=== PATIENT | female | born 1980 | race African-American/Black ===

== ENCOUNTER 2018-01-11 11:24 | Emergency (ER) | payer OTHER ==
[2018-01-11] MEDS: KETOROLAC 30 MG INJ IM (13:33)
== END 2018-01-11 13:35 | disposition home or self-care (01) ==
LOC: FTE 13:35
DX: B34.9 Viral infection, unspecified (principal); M79.1 Myalgia; J20.9 Acute bronchitis, unspecified; Z87.891 Personal history of nicotine dependence
CPT/HCPCS: 96372; 99284-25

== ENCOUNTER 2018-01-11 20:51 | Emergency (ER) | payer OTHER ==
[2018-01-11] MEDS: HYDROCODONE/APAP (5/325) TAB PO (21:59)
[2018-01-11 23:29] LABS: URINE PH (Dip) POC 6.5 (5.0-8.5)
[2018-01-11 23:29] LABS: URINE BLOOD (Dip) POC Negative (NEGATIVE); URINE GLUCOSE (Dip) POC Negative (NEGATIVE); URINE KETONES (Dip) POC 2+ (NEGATIVE); URINE LEUKOCYTE EST (Dip) POC Trace (NEGATIVE); URINE NITRITE (Dip) POC Negative (NEGATIVE); URINE TOTAL PROTEIN POC Trace (NEGATIVE)
[2018-01-11 23:47] LABS: HEMATOCRIT 36.6 % (37.0-47.0); HEMOGLOBIN 12.7 g/dl (12.0-16.0); MEAN CORPUSCULAR HEMOGLOBIN 30.8 pg (29.0-33.0); MEAN CORPUSCULAR HGB CONC 34.7 g/dl (32.0-37.0); MEAN CORPUSCULAR VOLUME 88.8 fl (82.0-101.0); MEAN PLATELET VOLUME 10.4 fl (7.4-10.4); PLATELET COUNT 201 10^3/UL (140-415); RED BLOOD COUNT 4.12 10^6/ul (4.20-5.40); RED CELL DISTRIBUTION WIDTH 13.2 % (11.5-14.5)
[2018-01-11 23:47] LABS: WHITE BLOOD COUNT 7.4 10^3/ul (4.8-10.8)
[2018-01-12] LABS: ADD MAN DIFF? YES
[2018-01-12 00:06] LABS: ANION GAP 15 (8-16); BLOOD UREA NITROGEN 14 mg/dl (7-20); CALCIUM 9.3 mg/dl (8.4-10.2); CARBON DIOXIDE 23 mmol/L (21-31); CHLORIDE 110 mmol/L (97-110); CREATININE 0.88 mg/dl (0.44-1.00); GLUCOSE 115 mg/dl (70-220); POTASSIUM 3.3 mmol/L (3.5-5.1); SODIUM 145 mmol/L (135-144)
[2018-01-12 00:10] LABS: ETHANOL < 10.0 mg/dl
[2018-01-12 00:54] LABS: AMPHETAMINE/METHAMPHETAMINE POSITIVE (NEGATIVE); BARBITURATES NEGATIVE (NEGATIVE); BENZODIAZEPINES POSITIVE (NEGATIVE); CANNABINOIDS POSITIVE (NEGATIVE); COCAINE NEGATIVE (NEGATIVE); OPIATES NEGATIVE (NEGATIVE)
[2018-01-12 01:32] LABS: SALICYLATE < 1.0 mg/dl (5.0-30.0)
[2018-01-12] MEDS: IBUPROFEN 600 MG TAB PO (01:50)
[2018-01-12 01:52] LABS: ACETAMINOPHEN < 10.0 ug/ml (10.0-30.0)
[2018-01-12 02:17] LABS: BASOPHILS % 0.3 % (0.0-2.0); EOSINOPHILS # 0.6 10^3/ul (0.0-0.5); EOSINOPHILS % 7.5 % (0.0-7.0); LYMPHOCYTES # 4.1 10^3/ul (0.8-2.9); LYMPHOCYTES % 54.4 % (15.0-51.0); MONOCYTE # 0.6 10^3/ul (0.3-0.9); MONOCYTES % 7.8 % (0.0-11.0); NEUTROPHIL # 2.2 10^3/ul (1.6-7.5); NEUTROPHILS % 29.9 % (39.0-77.0)
[2018-01-12] MEDS ORDERED: ACETAMINOPHEN 500 MG TAB (02:54)
[2018-01-12] MEDS: ACETAMINOPHEN 500 MG TAB PO (03:01)
[2018-01-12] MEDS: POTASSIUM CHLORIDE (SR) 20 MEQ TAB PO (03:54)
[2018-01-12] MEDS: CEPHALEXIN 500 MG CAP PO (08:57)
[2018-01-12] MEDS: OLANZAPINE 5 MG TAB PO (08:57)
[2018-01-12 11:23] LABS: ANION GAP 15 (8-16); BLOOD UREA NITROGEN 13 mg/dl (7-20); CALCIUM 8.8 mg/dl (8.4-10.2); CARBON DIOXIDE 22 mmol/L (21-31); CHLORIDE 114 mmol/L (97-110); CREATININE 0.64 mg/dl (0.44-1.00); GLUCOSE 182 mg/dl (70-220); POTASSIUM 3.6 mmol/L (3.5-5.1); SODIUM 147 mmol/L (135-144)
== END 2018-01-12 14:19 ==
LOC: E/R 01-12 14:19 → FTE 20:51
DX: F29 Unspecified psychosis not due to a substance or known physiological condition (principal); F32.3 Major depressive disorder, single episode, severe with psychotic features; N30.00 Acute cystitis without hematuria; E87.6 Hypokalemia; F15.10 Other stimulant abuse, uncomplicated; F13.20 Sedative, hypnotic or anxiolytic dependence, uncomplicated; F12.10 Cannabis abuse, uncomplicated; F17.210 Nicotine dependence, cigarettes, uncomplicated
CPT/HCPCS: 36415; 80048; 80307; 81003; 81025; 85025; 99285-25